=== PATIENT | female | born 1945 | race African-American/Black ===

== ENCOUNTER 2016-11-21 13:27 | Emergency (ER) | payer OTHER ==
[~2016-11-21] VITALS: Ht 157.5 cm; Wt 68.0 kg
[~2016-11-21 13:27] MED LIST: AMLO5TAB2 PO; CARV12.52 PO; LIPA1CAP2 PO; OMEP20CA9 PO
[2016-11-21 14:48] LABS: BILIRUBIN,URINE NEGATIVE (NEG); GLUCOSE,URINE NEGATIVE (NEG); NITRITE,URINE NEGATIVE (NEG); PH,URINE 6.5; PROTEIN,URINE NEGATIVE (NEG-TRACE); UROBILINOGEN,URINE 0.2 mg/dL (0.2 mg/dL)
[2016-11-21] MEDS ORDERED: ALBUTEROL SULFATE 2.5 MG/3 ML NEBU. NEB ONE (15:00)
--- NOTE | 2016-11-21 15:01 | RAD ---
Single view chest History:Chest pain and congestion for 2 days An AP view of the chest is submitted. Comparison: 01/28/2013. Findings: There is no significant infiltrate, pleural effusion, or pneumothorax. The pericardial cardiac silhouette is within normal limits in size. The trachea is in the midline. There is atherosclerotic calcification near aortic arch. Impression: There is no evidence of acute cardiopulmonary disease.
[2016-11-21 15:06] LABS: BACTERIA,URINE FEW /HPF (0-FEW); RBC,URINE 0 /HPF (0-2); SQUAMOUS EPITHELIAL CELL,UR OCC /LPF
[2016-11-21] MEDS ORDERED: PROAIR HFA8.5 GM INH (15:41)
[2016-11-21] MEDS ORDERED: AZIT250T6 PO (15:41)
--- NOTE | 2016-11-21 15:42 | PHYS DOC ---
Past Medical History Past Medical History: Hypertension Past Surgical History: Other Additional Past Surgical Histo: unknown Alcohol Use: None Drug Use: None Adult General Chief Complaint Chief Complaint: CHEST PAIN HPI HPI Patient is a 71 year old female who presents with 1 week of productive cough, chills, and left chest pain with cough over the past 2 days. States this pain sometimes radiates to her left shoulder. She specifically denies right-sided chest pain or right shoulder pain. She has no active chest pain. She denies difficulty breathing, rash, abdominal pain, nausea or vomiting, exertional symptoms, orthopnea, sore throat, rhinorrhea, hemoptysis, leg pain or swelling. Review of Systems Review of Systems Constitutional: Denies measured fever [] Eyes: Denies change in visual acuity, redness, or eye pain [] HENT: Denies nasal congestion or sore throat [] Respiratory: Denies shortness of breath [] Cardiovascular: No additional information not addressed in HPI [] GI: Denies abdominal pain, nausea, vomiting, bloody stools or diarrhea [] : Denies dysuria or hematuria [] Musculoskeletal: Denies back pain or joint pain [] Integument: Denies rash or skin lesions [] Neurologic: Denies headache, focal weakness or sensory changes [] Endocrine: Denies polyuria or polydipsia [] Current Medications Current Medications Current Medications Medications (Trade) Dose Ordered Sig/Solomon Start Time Stop Time Status Last Admin Dose Admin Albuterol Sulfate (Ventolin Neb Soln) 2.5 mg 1X ONCE 11/21/16 15:00 11/21/16 15:38 DC Allergies Allergies Allergies Coded Allergies Type Severity Reaction Last Updated Verified naproxen Allergy Unknown 01/02/14 Yes Physical Exam Physical Exam Constitutional: Well developed, well nourished, no acute distress, non-toxic appearance. [] HENT: Normocephalic, atraumatic, Left cerumen impaction, right external ear normal, oropharynx moist, no oral exudates, nose normal. [] Eyes: PERRLA, EOMI. [] Neck: Normal range of motion, supple, no stridor. [] Cardiovascular:Heart rate regular rhythm [] Lungs & Thorax: Mild bilateral wheezing with normal respiratory effort, no crackles [] Abdomen: Bowel sounds normal, soft, no tenderness. [] Skin: Warm, dry, no erythema, no rash. [] Back: No tenderness, no CVA tenderness. [] Extremities: No tenderness, ROM intact, no edema, no palpable cord. [] Neurologic: Alert and oriented X 3, normal motor function, normal sensory function, no focal deficits noted. [] Psychologic: Affect normal, judgement normal, mood normal. [] Current Patient Data Vital Signs Vital Signs Date Time Temp Pulse Resp B/P Pulse Ox O2 Delivery O2 Flow Rate FiO2 11/21/16 15:51 70 16 146/97 97 Room Air 11/21/16 13:50 97.9 97.9 Lab Values Laboratory Tests Test 11/21/16 14:40 Urine Collection Type Unknown Urine Color Yellow Urine Clarity Clear Urine pH 6.5 Urine Specific [place] 1.015 Urine Protein Negativemg/dL (NEG-TRACE) Urine Glucose (UA) Negativemg/dL (NEG) Urine Ketones (Stick) Negativemg/dL (NEG) Urine Blood Negative (NEG) Urine Nitrite Negative (NEG) Urine Bilirubin Negative (NEG) Urine Urobilinogen Dipstick 0.2mg/dL (0.2 mg/dL) Urine Leukocyte Esterase Negative (NEG) Urine RBC 0/HPF (0-2) Urine WBC 1-4/HPF (0-4) Urine Squamous Epithelial Cells Occ/LPF Urine Bacteria Few/HPF (0-FEW) EKG EKG EKG as interpreted by me as normal sinus rhythm, rate 73, no ST-T changes, normal intervals, no ectopy Radiology/Procedures Radiology/Procedures Chest x-ray as interpreted by me with mild left subphrenic angle blunting concerning for pneumonia versus atelectasis Course & Med Decision Making Course & Med Decision Making Pertinent Labs and Imaging studies reviewed. (See chart for details) History and chest x-ray are concerning for pneumonia. Will treat for community acquired pneumonia as she is feeling well and would like to go home. Will give inhaler for mild wheezing. Discussed OTC management of cerumen impaction. Return precautions given. She understands and agrees with plan. Dragon Disclaimer Dragon Disclaimer This electronic medical record was generated, in whole or in part, using a voice recognition dictation system. Departure Departure Impression: Primary Impression: Community acquired pneumonia Additional Impression: Impacted cerumen of left ear Disposition: HOME, SELF-CARE Condition: STABLE Referrals: MALCOLM COTA Jr, MD (PCP) Patient Instructions: Pneumonia, Adult, [id number] Additional Instructions: Taking azithromycin for pneumonia. Use albuterol inhaler as needed for cough. Use ear wax dissolver for left ear. Follow-up with your primary care doctor within one week. Return for any concerns. Scripts Albuterol Sulfate (Proair Hfa Inhaler)8.5 Gm Hfa.aer.ad2 Puff INH Q4HRS PRN SHORTNESS OF BREATH #1 INHALER Prov:Dayna AMOS MD 11/21/16 Azithromycin (Azithromycin Tablet)250 Mg Tablet1 Pkg PO UD #6 TAB Prov:Dayna AMOS MD 11/21/16 Problem Qualifiers Dayna AMOS MD Nov 21, 2016 15:42
[2016-11-21 15:51] VITALS: BP 146/97
--- NOTE | 2016-11-22 06:20 | EKG ---
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
== END 2016-11-21 15:53 | disposition home or self-care (01) ==
LOC: ER 13:27
DX: J18.9 Pneumonia, unspecified organism (principal); H61.22 Impacted cerumen, left ear; I10 Essential (primary) hypertension; Z88.6 Allergy status to analgesic agent
CPT/HCPCS: 71010; 81001; 93005; 99285-25

== ENCOUNTER → 2017-08-01 | Outpatient (CLI) | payer OTHER ==
[~2017-08-01] MED LIST changes: +AZIT250T6 PO; +PROAIR HFA8.5 GM INH
--- NOTE | 2017-08-02 14:36 | RAD ---
DATE: 08/01/2017 EXAM: DIGITAL SCREEN BILAT W/CAD HISTORY: Asymptomatic screening mammogram. COMPARISON: Prior mammograms from 07/29/2016, 07/30/2015, 06/13/2014, 05/25/2012 This study was interpreted with the benefit of Computerized Aided Detection (CAD). The breast parenchyma shows scattered fibroglandular densities. Breast parenchyma level B. FINDINGS: Bilateral CC and MLO views of the breasts were performed. Right breast: There are no suspicious microcalcifications, masses or areas of architectural distortion. Left breast: There are no suspicious microcalcifications, masses or areas of architectural distortion. Findings are stable from prior mammogram. IMPRESSION: Negative bilateral mammogram. Annual screening mammography is recommended. BI-RADS CATEGORY: 1 NEGATIVE RECOMMENDED FOLLOW-UP: 12M 12 MONTH FOLLOW-UP PQRS compliance statement: Patient information was entered into a reminder system with a target due date 08/01/2018 for the next mammogram. Mammography is a sensitive method for finding small breast cancers, but it does not detect them all and is not a substitute for careful clinical examination. A negative mammogram does not negate a clinically suspicious finding and should not result in delay in biopsying a clinically suspicious abnormality. "Our facility is accredited by the [employer] Mammography Program."
== END | disposition home or self-care (01) ==
LOC: MAMMO 13:52
PROVIDERS: ATTEND Internal Medicine
DX: Z12.31 Encounter for screening mammogram for malignant neoplasm of breast (principal)
CPT/HCPCS: G0202; 77067

== ENCOUNTER 2019-02-05 06:39 | Emergency (ER) | payer OTHER ==
[~2019-02-05] VITALS: Ht 157.5 cm; Wt 64.4 kg
[~2019-02-05 06:39] MED LIST changes: +ALBU2.5V8 INH; +AMLO5TAB10 PO; -AMLO5TAB2 PO; +CARV12.511 PO; -CARV12.52 PO; +OMEP20CA10 PO; -OMEP20CA9 PO; -PROAIR HFA8.5 GM INH
[2019-02-05] MEDS ORDERED: ONDANSETRON PF 4 MG/2 ML VIAL. IV ONE (07:15)
[2019-02-05] MEDS ORDERED: FAMOTIDINE 20 MG/2 ML VIAL IVP ONE (07:15)
[2019-02-05] MEDS ORDERED: IV NORMAL SALINE 1000ML BAG 1,000 ML IV ONE (07:15)
[2019-02-05 07:33] LABS: BILIRUBIN,URINE NEGATIVE (NEG); CLARITY,URINE CLEAR; COLOR,URINE YELLOW; NITRITE,URINE NEGATIVE (NEG); PH,URINE 5.5; PROTEIN,URINE 100 mg/dL (NEG-TRACE)
--- NOTE | 2019-02-05 07:38 | EKG ---
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
[2019-02-05 07:41] LABS: SQUAMOUS EPITHELIAL CELL,UR FEW /LPF
[2019-02-05 07:42] LABS: CALCIUM 9.3 mg/dL (8.5-10.1); GFR 65.4; POTASSIUM 3.7 mmol/L (3.5-5.1)
[2019-02-05 07:42] LABS: BACTERIA,URINE FEW /HPF (0-FEW)
[2019-02-05 07:48] LABS: ALBUMIN 3.7 g/dL (3.4-5.0); ALBUMIN/GLOBULIN RATIO 0.8 (1.0-1.7); TOTAL BILIRUBIN 0.4 mg/dL (0.2-1.0); TOTAL PROTEIN 8.3 g/dL (6.4-8.2)
--- NOTE | 2019-02-05 08:31 | PHYS DOC ---
Past Medical History Past Medical History: Hypertension, Pancreatitis (RIANA THOMAS DO) Past Surgical History: Other Additional Past Surgical Histo: unknown (RIANA THOMAS DO) Alcohol Use: None Drug Use: None (RIANA THOMAS DO) Adult General Chief Complaint Chief Complaint: ABDOMINAL PAIN HPI HPI 73-year-old female presents with report of nausea and vomiting with intermittent upper abdominal cramping pain which started yesterday evening approximate 1700. Patient reports associated fever up to 102F. Patient reports fever now resolved. Denies any current abdominal pain. Patient does report episode of some diarrhea. Denies known sick contacts. Denies travel outside [place]. Denies trauma. (RIANA THOMAS DO) Review of Systems Review of Systems Constitutional: Reports fever and chills [] Eyes: Denies change in visual acuity, redness, or eye pain [] HENT: Denies nasal congestion or sore throat [] Respiratory: Denies cough or shortness of breath [] Cardiovascular: Denies chest pain or palpitations GI: Reports abdominal pain, nausea, vomiting, and diarrhea [] : Denies dysuria or hematuria [] Musculoskeletal: Denies back pain or joint pain [] Integument: Denies rash or skin lesions [] Neurologic: Denies headache, focal weakness or sensory changes [] Complete systems were reviewed and found to be within normal limits, except as documented in this note. (RIANA THOMAS DO) Current Medications Current Medications Current Medications Medications (Trade) Dose Ordered Sig/Solomon Start Time Stop Time Status Last Admin Dose Admin Famotidine (Pepcid Vial) 20 mg 1X ONCE 02/05/19 07:15 02/05/19 07:18 DC 02/05/19 07:29 20 MG Ondansetron HCl (Zofran) 4 mg 1X ONCE 02/05/19 07:15 02/05/19 07:16 DC 02/05/19 07:29 4 MG Sodium Chloride 1,000 ml @ 1,000 mls/hr 1X ONCE 02/05/19 07:15 02/05/19 08:14 DC 02/05/19 07:28 1,000 MLS/HR (SAGAR JORDAN MD) Allergies Allergies Allergies Coded Allergies Type Severity Reaction Last Updated Verified naproxen Allergy Unknown 01/02/14 Yes (SAGAR JORDAN MD) Physical Exam Physical Exam Constitutional: Well developed, well nourished, no acute distress, non-toxic appearance. [] HENT: Normocephalic, atraumatic, oropharynx moist Eyes: Conjunctiva normal, no discharge. [] Neck: Normal range of motion, no tenderness, supple Cardiovascular: Heart rate regular rhythm, no murmur [] Lungs & Thorax: Bilateral breath sounds clear to auscultation [] Abdomen: Soft, no tenderness Skin: Warm, dry, no erythema, no rash. [] Back: No tenderness, no CVA tenderness. [] Extremities: No tenderness, ROM intact, no edema. [] Neurologic: Alert and oriented X 3, normal motor function, normal sensory function, no focal deficits noted. [] Psychologic: Affect normal, judgement normal, mood normal. [] (RIANA THOMAS DO) Current Patient Data Vital Signs Vital Signs Date Time Temp Pulse Resp B/P (MAP) Pulse Ox O2 Delivery O2 Flow Rate FiO2 02/05/19 09:44 93 148/67 (94) 02/05/19 08:10 99 Room Air 02/05/19 07:20 98.2 18 98.2 (SAGAR JORDAN MD) Lab Values Laboratory Tests Test 02/05/19 07:04 02/05/19 07:12 02/05/19 08:55 Urine Collection Type Unknown Urine Color Yellow Urine Clarity Clear Urine pH 5.5 Urine Specific [place] 1.020 Urine Protein 100 mg/dL (NEG-TRACE) Urine Glucose (UA) Negative mg/dL (NEG) Urine Ketones (Stick) Negative mg/dL (NEG) Urine Blood Trace (NEG) Urine Nitrite Negative (NEG) Urine Bilirubin Negative (NEG) Urine Urobilinogen Dipstick 1.0 mg/dL (0.2 mg/dL) Urine Leukocyte Esterase Negative (NEG) Urine RBC 1-2 /HPF (0-2) Urine WBC 1-4 /HPF (0-4) Urine Squamous Epithelial Cells Few /LPF Urine Bacteria Few /HPF (0-FEW) Urine Mucus Mod /LPF Prothrombin Time 13.0 SEC (11.7-14.0) Prothrombin Time INR 1.0 (0.8-1.1) PTT 20 SEC (24-38) L Sodium Level 144 mmol/L (136-145) Potassium Level 3.7 mmol/L (3.5-5.1) Chloride Level 105 mmol/L (98-107) Carbon Dioxide Level 25 mmol/L (21-32) Anion Gap 14 (6-14) Blood Urea Nitrogen 15 mg/dL (7-20) Creatinine 1.0 mg/dL (0.6-1.0) Estimated GFR (Cockcroft-Gault) 65.4 BUN/Creatinine Ratio 15 (6-20) Glucose Level 150 mg/dL (70-99) H Calcium Level 9.3 mg/dL (8.5-10.1) Total Bilirubin 0.4 mg/dL (0.2-1.0) Aspartate Amino Transferase (AST) 28 U/L (15-37) Alanine Aminotransferase (ALT) 39 U/L (14-59) Alkaline Phosphatase 77 U/L (46-116) Creatine Kinase 131 U/L (26-192) Creatine Kinase MB (Mass) 0.9 ng/mL (0.0-3.6) Creatine Kinase MB Relative Index 0.7 % (0-4) Troponin I Quantitative < 0.017 ng/mL (0.000-0.055) Total Protein 8.3 g/dL (6.4-8.2) H Albumin 3.7 g/dL (3.4-5.0) Albumin/Globulin Ratio 0.8 (1.0-1.7) L Lipase 162 U/L (73-393) White Blood Count 6.7 x10^3/uL (4.0-11.0) Red Blood Count 5.52 x10^6/uL (3.50-5.40) H Hemoglobin 14.8 g/dL (12.0-15.5) Hematocrit 44.9 % (36.0-47.0) Mean Corpuscular Volume 81 fL (79-100) Mean Corpuscular Hemoglobin 27 pg (25-35) Mean Corpuscular Hemoglobin Concent 33 g/dL (31-37) Red Cell Distribution Width 14.8 % (11.5-14.5) H Platelet Count 119 x10^3/uL (140-400) L Neutrophils (%) (Auto) 80 % (31-73) H Lymphocytes (%) (Auto) 13 % (24-48) L Monocytes (%) (Auto) 6 % (0-9) Eosinophils (%) (Auto) 1 % (0-3) Basophils (%) (Auto) 0 % (0-3) Neutrophils # (Auto) 5.4 x10^3uL (1.8-7.7) Lymphocytes # (Auto) 0.9 x10^3/uL (1.0-4.8) L Monocytes # (Auto) 0.4 x10^3/uL (0.0-1.1) Eosinophils # (Auto) 0.0 x10^3/uL (0.0-0.7) Basophils # (Auto) 0.0 x10^3/uL (0.0-0.2) Lactic Acid Level 2.0 mmol/L (0.4-2.0) Laboratory Tests 02/05/19 08:55 Laboratory Tests 02/05/19 07:12 (SAGAR JORDAN MD) EKG EKG @0735 NSR at 85bpm, NO ST elevation (RIANA THOMAS DO) Radiology/Procedures Radiology/Procedures [] (RIANA THOMAS DO) Course & Med Decision Making Course & Med Decision Making Pertinent Lab studies reviewed. (See chart for details) Patient presents with report of nausea and vomiting with upper abdominal intermittent cramping pain and associated diarrhea. Patient reports a fever yesterday. Patient currently afebrile. Abdomen non-peritoneal. Labs obtained and posted to chart. CBC pending at this time. IV fluid hydration provided. Symptomatic treatment provided with interval improvement of symptoms. Sign out given to Dr. Jordan for further evaluation and final disposition. Discussed findings and current plan with patient and family, who acknowledge understanding and agreement. (RIANA THOMAS DO) Course & Med Decision Making S/O THOMAS 0800 ASKED TO LOOK AT LABS AND DISPO PT. LIKELY VIRAL AGE PER THOMAS CBC NORMAL ESSENTIALLY WBC NORMAL. PT PAIN FREE ON REEVAL AT 930 WHEN LAB CAME BACK. COUNSELED ON STRICT RETURN PRECAUTIONS FOR MIGRATING RECURRENT PAIN PERSISTENT SYMPTOMS OR ANY NEW OR CONCERNING FEATURES (SAGAR JORDAN MD) Dragon Disclaimer Dragon Disclaimer This electronic medical record was generated, in whole or in part, using a voice recognition dictation system. (RIANA THOMAS DO) Departure Departure Impression: Primary Impression: Nausea vomiting and diarrhea Disposition: HOME, SELF-CARE Condition: STABLE Referrals: VIPUL NOYOLA MD (PCP) Scripts Ondansetron Hcl (ZOFRAN) 4 Mg Tablet 4 MG PO PRN TID PRN for NAUSEA/VOMITING, #10 nausea/vomiting Prov: SAGAR JORDAN MD 02/05/19 RIANA THOMAS DO Feb 05, 2019 08:31 SAGAR JORDAN MD Feb 05, 2019 10:07
[2019-02-05 09:04] LABS: BASO % 0 % (0-3); EOS % 1 % (0-3); HEMATOCRIT 44.9 % (36.0-47.0); HEMOGLOBIN 14.8 g/dL (12.0-15.5); LYMPH # 0.9 x10^3/uL (1.0-4.8); LYMPH % 13 % (24-48); MEAN CORPUSCULAR HEMOGLOBIN 27 pg (25-35); MEAN CORPUSCULAR HGB CONC 33 g/dL (31-37); MEAN CORPUSCULAR VOLUME 81 fL (79-100); MONO # 0.4 x10^3/uL (0.0-1.1); MONO % 6 % (0-9); NEUT # 5.4 x10^3uL (1.8-7.7); NEUT % 80 % (31-73); PLATELET COUNT 119 x10^3/uL (140-400); RED BLOOD COUNT 5.52 x10^6/uL (3.50-5.40); RED CELL DISTRIBUTION WIDTH 14.8 % (11.5-14.5); WHITE BLOOD COUNT 6.7 x10^3/uL (4.0-11.0)
[2019-02-05] MEDS ORDERED: ONDA4TAB7 PO (09:36)
[2019-02-05 09:44] VITALS: BP 148/67
== END 2019-02-05 09:58 | disposition home or self-care (01) ==
LOC: ER 06:39
DX: R11.2 Nausea with vomiting, unspecified (principal); R19.7 Diarrhea, unspecified; R10.10 Upper abdominal pain, unspecified; I10 Essential (primary) hypertension; Z88.5 Allergy status to narcotic agent
CPT/HCPCS: 36415; 80053; 81001; 82553; 83605; 83690; 84484; 85025; 85610; 85730; 93005; 96361; 96374; 96375; 99285; J2405; J3490; J7030

== ENCOUNTER 2019-06-26 00:17 | Emergency (ER) | payer OTHER ==
[~2019-06-26] VITALS: Ht 157.5 cm; Wt 64.4 kg
[~2019-06-26 00:17] MED LIST changes: +ONDA4TAB7 PO
[2019-06-26 00:25] VITALS: BP 222/93
--- NOTE | 2019-06-26 00:52 | PHYS DOC ---
Past Medical History Past Medical History: High Cholesterol, Hypertension, Pancreatitis (RIANA NICOLE APRN) Past Surgical History: Hysterectomy, Other Additional Past Surgical Histo: unknown (RIANA NICOLE APRN) Alcohol Use: None Drug Use: None (RIANA NICOLE APRN) Adult General Chief Complaint Chief Complaint: WRIST PAIN HPI HPI Patient is a 74 year old -year-old presents after tripping over a brick in her back around 7:30 PM. The patient states that her right wrist and forearm are throbbing and her pain is 5 out of 10 in severity. Has not taking medicines prior to arrival. (RIANA NICOLE APRN) Review of Systems Review of Systems Constitutional: Denies fever or chills [] Eyes: Denies change in visual acuity, redness, or eye pain [] HENT: Denies nasal congestion or sore throat [] Respiratory: Denies cough or shortness of breath [] Cardiovascular: No additional information not addressed in HPI [] GI: Denies abdominal pain, nausea, vomiting, bloody stools or diarrhea [] : Denies dysuria or hematuria [] Musculoskeletal: Reports R forearm and wrist pain. Integument: Denies rash or skin lesions [] Neurologic: Denies headache, focal weakness or sensory changes [] Endocrine: Denies polyuria or polydipsia [] Complete systems were reviewed and found to be within normal limits, except as documented in this note. (RIANA NICOLE APRN) Allergies Allergies Allergies Coded Allergies Type Severity Reaction Last Updated Verified naproxen Allergy Unknown 01/02/14 Yes (RIANA THOMAS DO) Physical Exam Physical Exam Constitutional: Well developed, well nourished, no acute distress, non-toxic appearance. [] HENT: Normocephalic, atraumatic, bilateral external ears normal, oropharynx moist, no oral exudates, nose normal. [] Eyes: PERRLA, EOMI, conjunctiva normal, no discharge. [] Neck: Normal range of motion, no tenderness, supple, no stridor. [] Cardiovascular:Heart rate regular rhythm, no murmur [] Lungs & Thorax: Bilateral breath sounds clear to auscultation [] Abdomen: Bowel sounds normal, soft, no tenderness, no masses, no pulsatile masses. [] Skin: Warm, dry, no erythema, no rash. [] Back: No tenderness, no CVA tenderness. [] Extremities: Tenderness to R wrist and forearm, no cyanosis, no clubbing, ROM intact, no edema. [] Neurologic: Alert and oriented X 3, normal motor function, normal sensory function, no focal deficits noted. [] Psychologic: Affect normal, judgement normal, mood normal. [] (RIANA NICOLE APRN) Current Patient Data Vital Signs Vital Signs Date Time Temp Pulse Resp B/P (MAP) Pulse Ox O2 Delivery O2 Flow Rate FiO2 06/26/19 00:25 98.7 77 18 222/93 (136) 97 Room Air 98.7 (RIANA THOMAS DO) EKG EKG [] (RIANA NICOLE APRN) Radiology/Procedures Radiology/Procedures X-ray interpreted by Dr. Thomas No obvious acute findings. (RIANA NICOLE APRN) Radiology/Procedures PROCEDURE: WRIST 3V RIGHT & FOREARM 2V RIGHT Right wrist x-rays 3 views HISTORY: Right wrist pain. FINDINGS: No fracture or dislocation. Osteoarthritic change with spurs and mild reticular ossicles at the first carpal metacarpal joint. IMPRESSION: No acute osseous injury. Right forearm PA lateral x-rays HISTORY: Right forearm pain. FINDINGS: No fracture or dislocation. No lytic or sclerotic bone lesion of the radius and ulna. Soft tissues are unremarkable. IMPRESSION: No acute osseous injury. Electronically signed by: Al Giles MD (06/26/2019 4:11 AM) [facility] (RIANA THOMAS DO) Course & Med Decision Making Course & Med Decision Making Pertinent Labs and Imaging studies reviewed. (See chart for details) Will get x-ray. X-ray negative will d/c home. (RIANA NICOLE APRN) Dragon Disclaimer Dragon Disclaimer This electronic medical record was generated, in whole or in part, using a voice recognition dictation system. (RIANA NICOLE APRN) Departure Departure Impression: Primary Impression: Wrist pain Disposition: HOME, SELF-CARE Condition: STABLE Referrals: VIPUL NOYOLA MD (PCP) Patient Instructions: Wrist Sprain with [facility]hab[facility] Additional Instructions: Thank you for visiting [facility]. We appreciate you trusting us with your care. If any additional problems come up don't hesitate to return to visit us. Please follow up with your primary care provider so they can plan additional care if needed and know about the problem that you had. If symptoms worsen come back to the Emergency Department. Any concerning symptoms that start such as chest pain, shortness of air, weakness or numbness on one side of the body, running high fevers or any other concerning symptoms return to the ER. Attending Signature Attending Signature I have reviewed the PA/TITLE 1 TUTOR's note and plan of care. I was available for consultation as needed during the patient's visit in the emergency department. I agree with the clinical impression, plan, and disposition. (RIANA THOMAS DO) Problem Qualifiers Primary Impression: Wrist pain Laterality: right Qualified Codes: M25.531 - Pain in right wrist RIANA NICOLE APRN Jun 26, 2019 00:52 RIANA THOMAS DO Jun 26, 2019 04:41
--- NOTE | 2019-06-26 04:14 | RAD ---
Right wrist x-rays 3 views HISTORY: Right wrist pain. FINDINGS: No fracture or dislocation. Osteoarthritic change with spurs and mild reticular ossicles at the first carpal metacarpal joint. IMPRESSION: No acute osseous injury. Right forearm PA lateral x-rays HISTORY: Right forearm pain. FINDINGS: No fracture or dislocation. No lytic or sclerotic bone lesion of the radius and ulna. Soft tissues are unremarkable. IMPRESSION: No acute osseous injury. Electronically signed by: Al Giles MD (06/26/2019 4:11 AM) [facility]
== END 2019-06-26 01:30 | disposition home or self-care (01) ==
LOC: ER 00:17
DX: M25.531 Pain in right wrist (principal); E78.00 Pure hypercholesterolemia, unspecified; I10 Essential (primary) hypertension; Z90.710 Acquired absence of both cervix and uterus; Z88.8 Allergy status to other drugs, medicaments and biological substances
CPT/HCPCS: 73090; 73110; 99284

== ENCOUNTER 2019-10-23 14:16 | Emergency (ER) | payer MEDICARE, OTHER ==
[~2019-10-23 14:16] MED LIST changes: -OMEP20CA10 PO; +OMEP20CA16 PO
[2019-10-23] MEDS ORDERED: IPRATRPIUM/ALBUTEROL 0.5/2.5MG 3 ML NEBU. NEB ONE (15:30)
[2019-10-23] MEDS ORDERED: ACETAMINOPHEN 500 MG TABLET PO ONE (15:30)
[2019-10-23 15:39] LABS: BASO # 0.1 x10^3/uL (0.0-0.2); BASO % 1 % (0-3); EOS # 0.1 x10^3/uL (0.0-0.7); EOS % 2 % (0-3); HEMOGLOBIN 14.5 g/dL (12.0-15.5); LYMPH # 1.7 x10^3/uL (1.0-4.8); LYMPH % 18 % (24-48); MEAN CORPUSCULAR HEMOGLOBIN 27 pg (25-35); MEAN CORPUSCULAR HGB CONC 33 g/dL (31-37); MEAN CORPUSCULAR VOLUME 81 fL (79-100); MONO % 11 % (0-9); NEUT # 6.3 x10^3/uL (1.8-7.7); NEUT % 68 % (31-73); PLATELET COUNT 141 x10^3/uL (140-400); RED BLOOD COUNT 5.46 x10^6/uL (3.50-5.40); WHITE BLOOD COUNT 9.1 x10^3/uL (4.0-11.0)
[2019-10-23 15:59] LABS: INFLUENZA A PATIENT NEGATIVE (NEGATIVE); INFLUENZA B PATIENT NEGATIVE (NEGATIVE)
--- NOTE | 2019-10-23 16:16 | RAD ---
PORTABLE CHEST 1V History: Short of breath. Comparison: November 21, 2016 Findings: Patchy right basilar opacity. No pneumothorax. No pleural effusion. Normal heart size. Impression: 1. Patchy right medial basilar opacity, may represent atelectasis or consolidation. PA and lateral view of the chest can better assess, if clinically indicated. Electronically signed by: Tarun Angulo DO (10/23/2019 4:13 PM) [id number]
[2019-10-23 16:17] LABS: PLT ESTIMATE ADEQUATE (ADEQUATE)
[2019-10-23 16:31] LABS: CALCIUM 9.4 mg/dL (8.5-10.1); GFR 65.2; POTASSIUM 3.9 mmol/L (3.5-5.1)
[2019-10-23 16:36] LABS: ALBUMIN 3.5 g/dL (3.4-5.0); ALBUMIN/GLOBULIN RATIO 0.8 (1.0-1.7); TOTAL BILIRUBIN 0.3 mg/dL (0.2-1.0); TOTAL PROTEIN 7.9 g/dL (6.4-8.2)
--- NOTE | 2019-10-23 16:37 | PHYS DOC ---
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 She does note some sharp right-sided back pain with coughing as well. She is frustrated because she is not better yet despite the antibiotic prescription. Review of Systems Review of Systems Constitutional: Eyes: Denies change in visual acuity, redness, or eye pain [] Musculoskeletal: Integument: Denies rash or skin lesions [] Neurologic: Denies headache, focal weakness or sensory changes [] Endocrine: Denies polyuria or polydipsia [] All other systems were reviewed and found to be within normal limits, except as documented in this note. Current Medications Current Medications Current Medications Medications (Trade) Dose Ordered Sig/Solomon Start Time Stop Time Status Last Admin Dose Admin Acetaminophen (Tylenol) 1,000 mg 1X ONCE 10/23/19 15:30 10/23/19 15:41 DC 10/23/19 15:58 1,000 MG Albuterol/ Ipratropium (Duoneb) 3 ml 1X ONCE 10/23/19 15:30 10/23/19 15:41 DC 10/23/19 15:35 3 ML Ceftriaxone Sodium (Rocephin) 1 gm 1X ONCE 10/23/19 17:30 10/23/19 17:31 DC 10/23/19 17:25 1 GM Allergies Allergies Allergies Coded Allergies Type Severity Reaction Last Updated Verified naproxen Allergy Unknown 01/02/14 Yes Physical Exam Physical Exam Constitutional: Well developed, well nourished, no acute distress, non-toxic appearance. [] HENT: Normocephalic, atraumatic, bilateral external ears normal, oropharynx moist, no oral exudates, nose normal. [] Eyes: PERRLA, EOMI, conjunctiva normal, no discharge. [] Neck: Normal range of motion, no tenderness, supple, no stridor. [] Cardiovascular:Heart rate regular rhythm, no murmur [] Lungs & Thorax: WHEEZING NOTED, COARSE BREATH SOUNDS MORE ON THE RIGHT patient's lungs sounded better after breathing treatment Abdomen: Bowel sounds normal, soft, no tenderness, no masses, no pulsatile masses. [] Skin: Warm, dry, no erythema, no rash. [] Back: No tenderness, no CVA tenderness. [] Extremities: No tenderness, no cyanosis, no clubbing, ROM intact, no edema. [] Neurologic: Alert and oriented X 3, normal motor function, normal sensory function, no focal deficits noted. [] Psychologic: Affect normal, judgement normal, mood normal. [] Current Patient Data Vital Signs Vital Signs Date Time Temp Pulse Resp B/P (MAP) Pulse Ox O2 Delivery O2 Flow Rate FiO2 10/23/19 17:20 90 22 156/68 (97) 94 Room Air 10/23/19 14:50 100.7 100.7 Lab Values Laboratory Tests Test 10/23/19 15:10 10/23/19 16:05 White Blood Count 9.1 x10^3/uL (4.0-11.0) Red Blood Count 5.46 x10^6/uL (3.50-5.40) H Hemoglobin 14.5 g/dL (12.0-15.5) Hematocrit 44.0 % (36.0-47.0) Mean Corpuscular Volume 81 fL (79-100) Mean Corpuscular Hemoglobin 27 pg (25-35) Mean Corpuscular Hemoglobin Concent 33 g/dL (31-37) Red Cell Distribution Width 14.0 % (11.5-14.5) Platelet Count 141 x10^3/uL (140-400) Neutrophils (%) (Auto) 68 % (31-73) Lymphocytes (%) (Auto) 18 % (24-48) L Monocytes (%) (Auto) 11 % (0-9) H Eosinophils (%) (Auto) 2 % (0-3) Basophils (%) (Auto) 1 % (0-3) Neutrophils # (Auto) 6.3 x10^3/uL (1.8-7.7) Lymphocytes # (Auto) 1.7 x10^3/uL (1.0-4.8) Monocytes # (Auto) 1.0 x10^3/uL (0.0-1.1) Eosinophils # (Auto) 0.1 x10^3/uL (0.0-0.7) Basophils # (Auto) 0.1 x10^3/uL (0.0-0.2) Platelet Estimate Adequate (ADEQUATE) Large Platelets Present Influenza Type A Antigen Negative (NEGATIVE) Influenza Type B Antigen Negative (NEGATIVE) Sodium Level 144 mmol/L (136-145) Potassium Level 3.9 mmol/L (3.5-5.1) Chloride Level 106 mmol/L (98-107) Carbon Dioxide Level 27 mmol/L (21-32) Anion Gap 11 (6-14) Blood Urea Nitrogen 16 mg/dL (7-20) Creatinine 1.0 mg/dL (0.6-1.0) Estimated GFR (Cockcroft-Gault) 65.2 BUN/Creatinine Ratio 16 (6-20) Glucose Level 101 mg/dL (70-99) H Lactic Acid Level 1.3 mmol/L (0.4-2.0) Calcium Level 9.4 mg/dL (8.5-10.1) Total Bilirubin 0.3 mg/dL (0.2-1.0) Aspartate Amino Transferase (AST) 35 U/L (15-37) Alanine Aminotransferase (ALT) 31 U/L (14-59) Alkaline Phosphatase 89 U/L (46-116) Troponin I Quantitative < 0.017 ng/mL (0.000-0.055) GC-Sxx-K-Type Natriuretic Peptide 46 pg/mL (0-449) Total Protein 7.9 g/dL (6.4-8.2) Albumin 3.5 g/dL (3.4-5.0) Albumin/Globulin Ratio 0.8 (1.0-1.7) L Laboratory Tests 10/23/19 15:10 Laboratory Tests 10/23/19 16:05 EKG EKG []EKG NO STEMI RATE NORMAL SINUS RHYTHM NO STEMI Radiology/Procedures Radiology/Procedures [] Impressions: Impression: 1. Patchy right medial basilar opacity, may represent atelectasis or consolidation. PA and lateral view of the chest can better assess, if clinically indicated. Electronically signed by: Tarun Thompson DO (10/23/2019 4:13 PM) [id number] DICTATED and SIGNED BY: TARUN THOMPSON DO DATE: 10/23/19 8703 Course & Med Decision Making Course & Med Decision Making Pertinent Labs and Imaging studies reviewed. (See chart for details) []74 YO F 25 YEAR SMOKING HX P/W COUGH FEVER FOUND TO HAVE PNA Overall oxygenation is adequate 94% on room air labs look pretty good no leukocytosis patient is breathing more comfortably after breathing treatment I think she is a candidate for outpatient management. I would not say that she's failed an outpatient management she's only had 24 hours worth of antibiotics I did give a dose of ceftriaxone in the emergency room and recommended continue the doxycycline already prescribed I did prescribe albuterol refill for her nebulizer machine at home and she will be discharged in stable condition she is comfortable with this plan and return precautions were discussed in detail. Dragon Disclaimer Dragon Disclaimer This electronic medical record was generated, in whole or in part, using a voice recognition dictation system. Departure Departure Impression: Primary Impression: Community acquired pneumonia Disposition: HOME, SELF-CARE Condition: STABLE Referrals: VIPUL NOYOLA MD (PCP) Scripts Albuterol Sulfate (ALBUTEROL SULFATE CONC NEB SOLN) 2.5 Mg/0.5 Ml Vial.neb 1 VIAL NEB Q4HRS, #60 VIAL 1 Refill Prov: SAGAR JORDAN MD 10/23/19 SAGAR JORDAN MD Oct 23, 2019 16:37
[2019-10-23 17:20] VITALS: BP 156/68
[2019-10-23] MEDS ORDERED: ALBU2.5V14 NEB (17:28)
[2019-10-23] MEDS ORDERED: cefTRIAXone IV Push 1 GM VIAL. IVP ONE (17:30)
--- NOTE | 2019-10-24 10:13 | EKG ---
[facility] [address] [place] [address] Test Date: 2019-10-23 Test Time: 14:59:26 Pat Name: JOB RÍOS Department: Room: Gender: F Presser Cotton Ginning: : 1945 Requested By: SAGAR JORDAN Order Number: [id number] Reading MD: Measurements Intervals [place]st Rate: P: MO: QRS: QRSD: T: QT: QTc: Interpretive Statements
== END 2019-10-23 17:32 | disposition home or self-care (01) ==
LOC: ER 14:16
DX: J18.9 Pneumonia, unspecified organism (principal); E78.00 Pure hypercholesterolemia, unspecified; I10 Essential (primary) hypertension; Z88.5 Allergy status to narcotic agent
CPT/HCPCS: 36415; 71045; 80053; 83605; 83880; 84484; 85025; 87040; 87804; 93005; 94640; 96374; 99285; J0696; J7620